=== PATIENT | female | born 1965 | race Caucasian/White ===

== ENCOUNTER 2021-01-28 08:43 | Emergency (ER) | payer OTHER, SELFPAY ==
[2021-01-28 08:44] VITALS: BP 147/88; PULSE 90; RESP 20; TEMP 36.4; BMI 30.9
--- NOTE | 2021-01-28 09:06 | EX.ED.DYSGE1 ---
HPI History of Present Illness Chief Complaint: Allergic Reaction Informant: patient Narrative Narrative: 55-year-old female presents the emergency room with hives and facial swelling. Patient states that 30 years ago she had a summer where she struggled with hives. It went away and couple weeks ago she was prescribed Flagyl and developed hives again. She states that she has been taking Benadryl and that does help. Yesterday at work she began to have facial swelling and lip swelling. She gave herself a shot of epinephrine and things improved but she continued to have facial swelling. She took some additional Benadryl cream to the emergency room this morning after noticing her eyes were swollen. She denies any changes in soaps lotions etc. [facility] Medical History Anxiety Depression Home Medications epinephrine [Epi E-Z Pen] 0.3 mg IM Q10M PRN PRN 01/28/21 [History Last Taken Unknown] epinephrine [EpiPen 2-Jay] 0.3 mg IM Q10M PRN PRN #2 ea 01/28/21 [Rx Last Taken Unknown] venlafaxine 150 mg PO DAILY 01/28/21 [History Last Taken Unknown] Allergy/AdvReac Type Severity Reaction Status Date / Time ibuprofen Allergy Anaphylaxis Verified 01/28/21 08:58 metronidazole Allergy Anaphylaxis Verified 01/28/21 08:58 Surgical History Hx of section Social History (Updated 01/28/21 @ 09:[address] Boyd Geller DO) Smoking Status: Current every day smoker tobacco type: cigarettes substance use type: does not use ROS ROS ED Constitutional Constitutional ED: Denies chills or weight loss Eyes Eyes: Denies change in vision or diplopia ENT ENT ED: Reports other Details: Facial swelling ; Denies ear pain, rhinorrhea or sore throat Cardiovascular Cardiovascular: Denies chest pain, orthopnea, palpitations or racing heartbeat Respiratory/Chest Respiratory/Chest: Denies cough, dyspnea or orthopnea Gastrointestinal Gastrointestinal: Denies abdominal pain, diarrhea, nausea or vomiting Genitourinary Genitourinary ED: Denies dysuria, hematuria or urinary frequency Musculoskeletal Musculoskeletal: Denies arthralgias or myalgias Integumentary Reports other Details: Hives ; Denies abscess or rash Neurologic Neurologic: Denies headache(s) or weakness Psychiatric Psychiatric: Denies anxiety, depression, suicidal ideation or suicidal thoughts Endocrine Endocrinology: Denies polydipsia, polyphagia or polyuria Allergic/Immunologic Allergic/Immunologic ED: Denies mouth swelling, tongue swelling or urticaria EXAM Physical Exam Const Vital Signs: 01/28/21 08:44 Temperature 97.6 F L Temperature Source Temporal Pulse Rate 90 Respiratory Rate 20 H Blood Pressure 147/88 H Blood Pressure Mean 107 Positive well nourished and well developed General Appearance ED: well developed HEENT Reports normocephalic, head/scalp atraumatic, TM's clear and moist mucous membranes HEENT Narrative: There is no tongue swelling. There is mild swelling particularly in the periorbital region bilaterally. Tympanic Membrane ED: Yes TM's clear Eyes PERRL and EOMs intact bilaterally Neck no lymphadenopathy, supple and no JVD Resp normal respiratory effort and clear to auscultation bilaterally Cardio regular rate, regular rhythm and no murmurs GI normal to inspection, nondistended, normoactive bowel sounds and non-tender Palpation: soft Back/Spine no CVA tenderness and normal ROM Extremity normal to inspection General Extremety ED: Negative for edema General Extremity: Negative for edema Neuro oriented x3 and CN's II-XII intact bilaterally Sensorium / Orientation: alert Motor Exam: strength 5/5 throughout Psych mental status grossly normal Mood & Affect: Negative for depressed or tearful Skin no rashes or lesions noted and no wounds MDM MDM MDM Narrative Medical decision making narrative: Patient really does not want steroids as she states that she was on them before which resulted in a significant weight gain but she had been using them for months. She will continue to use Benadryl also add in Pepcid. I will give her a shot of Kenalog. Would recommend follow-up with allergy. Discharge Plan Triage Chief Complaint: Allergic Reaction ED Provider: Boyd Geller Dx/Rx/DC Orders Clinical Impression: Hives, Facial swelling Prescriptions: New epinephrine [EpiPen 2-Jay] 0.3 mg/0.3 mL auto-injector 0.3 mg IM Q10M PRN PRN (Reason: anaphylaxis) Qty: 2 RF: 0 No Action venlafaxine 150 mg Capsule,Extended Release 24hr 150 mg PO DAILY RF: 0 epinephrine [Epi E-Z Pen] 0.3 mg/0.3 mL Auto-Injector 0.3 mg IM Q10M PRN PRN (Reason: Allergic Reaction) RF: 0 Primary Care Provider: Juliano Ellsworth Referrals: Juliano Ellsworth MD [Primary Care Provider] - As Needed Activity Restrictions/Additional Instructions: Benadryl 25 mg every 6 hours as needed. I would also recommend taking Pepcid 20 mg twice a day. I would recommend following up with an field artillery targeting technician. Disposition Disposition: Home, Self Care
[2021-01-28] MEDS: Triamcinolone Acetonide 40 MG/ML Vial 80 MG IM (09:36)
[2021-01-28 10:13] VITALS: PULSE 78; RESP 16; O2SAT 97
== END 2021-01-28 10:14 | disposition home or self-care (01) ==
LOC: ED 09:25
PROVIDERS: Emergency Provider Emergency Medicine; PCP Family Medicine
DX: L50.0 Allergic urticaria (principal); M79.89 Other specified soft tissue disorders; F41.9 Anxiety disorder, unspecified; F32.9 Major depressive disorder, single episode, unspecified; F17.210 Nicotine dependence, cigarettes, uncomplicated; Z79.899 Other long term (current) drug therapy
CPT/HCPCS: 96372; 99282

== ENCOUNTER 2021-06-09 15:25 | Emergency (ER) | payer SELFPAY ==
[2021-06-09 15:26] VITALS: BP 139/84; PULSE 91; RESP 15; TEMP 36.4; O2SAT 97; BMI 32.2
--- NOTE | 2021-06-09 15:54 | EDS_ITS ---
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 She had 1 occur about an hour ago around 3:00 she says she started developing tongue lip swelling throat swelling. And injected herself in the right thigh with her EpiPen. She said within minutes she has significant relief and currently is almost back to baseline. She has had these ever since 22 years old and essentially went away for a while and have recurred in the last 3 months. She sees an occupational health and safety adviser who prescribes her her EpiPen's and they called her in a refill today. She denies any recent illness. Prior similar symptoms: Yes PFSH PFSH Medical History Anxiety Depression Home Medications epinephrine [Epi E-Z Pen] 0.3 mg IM Q10M PRN PRN 01/28/21 [History Last Taken Unknown] epinephrine [EpiPen 2-Jay] 0.3 mg IM Q10M PRN PRN #2 ea 01/28/21 [Rx Last Taken Unknown] venlafaxine 150 mg PO DAILY 01/28/21 [History Last Taken Unknown] Allergy/AdvReac Type Severity Reaction Status Date / Time ibuprofen Allergy Anaphylaxis Verified 06/09/21 15:26 metronidazole Allergy Anaphylaxis Verified 06/09/21 15:26 Surgical History Hx of section Social History Smoking Status: Current every day smoker tobacco type: cigarettes substance use type: does not use ROS ROS ED ROS Narrative Today wheezing, mild lip and tongue swelling. Hoarse voice. Gets hives almost daily. Review of Systems ROS Unobtainable: Denies due to encephalopathy Constitutional Constitutional ED: Denies chills, fever(s) or subjective Eyes Eyes: Denies change in vision ENT ENT ED: Denies ear pain or rhinorrhea Cardiovascular Cardiovascular: Denies chest pain or palpitations Respiratory/Chest Respiratory/Chest: Denies cough or dyspnea Gastrointestinal Gastrointestinal: Denies abdominal pain, diarrhea, nausea or vomiting Genitourinary Genitourinary ED: Denies dysuria Musculoskeletal Musculoskeletal: Denies myalgias Integumentary Reports rash Neurologic Neurologic: Denies headache(s) Psychiatric Psychiatric: Denies depression Endocrine Endocrinology: Denies polyuria Allergic/Immunologic Allergic/Immunologic ED: Denies urticaria EXAM Physical Exam Narrative Exam Narrative: 55-year-old female no acute distress vital signs stable afebrile. Pulse ox 97% on room air no hypoxia. Blood pressure 139/84. Patient in no distress. HEENT exam normal. Posterior pharynx normal. No swelling of t he lips or tongue. No trouble swallowing or breathing. Minimally hoarse voice. No drooling. Neck nontender no lymphadenopathy. Lungs clear to auscultation no wheezing. Heart regular rhythm rate about 90. Abdomen soft nontender. Moving all 4 extremities. 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 No edema. Neurologically awake and alert no focal motor deficits. Const Vital Signs: 06/09/21 15:26 Temperature 97.5 F L Temperature Source Temporal Pulse Rate 91 Respiratory Rate 15 Blood Pressure 139/84 H Blood Pressure Mean 102 Pulse Ox 97 Oxygen Delivery Method Room Air Positive well nourished and well developed; Negative for cachectic, contractures or unkempt General Appearance ED: well developed and NAD; Negative for unkempt, cachectic, contractures, cyanotic, diaphoretic or pallor Nutritional Appearance: Negative for cachectic HEENT Reports moist mucous membranes Negative for trauma or tenderness Eyes PERRL and EOMs intact bilaterally Neck no lymphadenopathy, supple and no JVD General: Negative for tenderness Chest Wall inspection of chest normal Resp normal respiratory effort and clear to auscultation bilaterally Effort and Inspection: Negative for pain with movement Auscultation: Negative for rales, rhonchi or wheezes GI normal to inspection, nondistended, normoactive bowel sounds, non-tender, non- distended and no masses Inspection: Negative for abdominal distention Auscultation: normoactive bowel sounds; Negative for hyperactive bowel sounds Palpation: soft; Negative for tender, guarding or rebound tenderness present Back/Spine no CVA tenderness General Back: Negative for CVA tenderness Cervical Spine: Negative for cervical spine tenderness Thoracic Spine / Upper Back: Negative for thoracic spinal tenderness or paraspinal muscle tenderness Lumbar Spine / Lower Back: Negative for lumbar spinal tenderness Extremity normal to inspection General Extremety ED: Negative for edema or tenderness General Extremity: Negative for edema Neuro oriented x3, CN's II-XII intact bilaterally and no sensory deficits noted Sensorium / Orientation: alert; Negative for orientation impaired, lethargic or stuporous Motor Exam: strength 5/5 throughout Psych mental status grossly normal Appearance: Negative for unkempt Attitude: No agitated Mood & Affect: Negative for depressed, anxious or tearful Skin no rashes or lesions noted, no wounds and skin turgor normal General Skin Exam: Negative for jaundice or pallor MDM MDM MDM Narrative Medical decision making narrative: 55-year-old female history of recurrent idiopathic allergic reactions. Used her EpiPen about an hour ago. He is feeling much improved. Has no swelling of her lips or tongue currently. No trouble breathing. She will be observed and if doing well she will be discharged home. Her occupational health and safety adviser is already called her in a refill for her EpiPen. She and I discussed oral steroids which she states she does not want to do because in the past she put on significant weight with those. Discharge Plan Triage Chief Complaint: Allergic Reaction ED Provider: Terrell Aguirre Dx/Rx/DC Orders Clinical Impression: Allergic reaction Instructions: ED General Allergic Reactions Prescriptions: No Action venlafaxine 150 mg Capsule,Extended Release 24hr 150 mg PO DAILY RF: 0 epinephrine [Epi E-Z Pen] 0.3 mg/0.3 mL Auto-Injector 0.3 mg IM Q10M PRN PRN (Reason: Allergic Reaction) RF: 0 epinephrine [EpiPen 2-Jay] 0.3 mg/0.3 mL auto-injector 0.3 mg IM Q10M PRN PRN (Reason: anaphylaxis) Qty: 2 RF: 0 Primary Care Provider: Juliano Ellsworth Referrals: Juliano Ellsworth MD [Primary Care Provider] - As Needed Activity Restrictions/Additional Instructions: Make sure to get your EpiPen refill as soon as possible. Return if feeling worse. Follow-up with your doctors as needed. Disposition Disposition: Home, Self Care
[2021-06-09 16:39] VITALS: PULSE 92; RESP 18; O2SAT 99
== END 2021-06-09 16:39 | disposition home or self-care (01) ==
LOC: ED 16:04
PROVIDERS: Emergency Provider Emergency Medicine; PCP Family Medicine; Visit Provider Emergency Medicine
DX: T78.40XA Allergy, unspecified, initial encounter (principal); F17.210 Nicotine dependence, cigarettes, uncomplicated; F32.A Depression, unspecified; F41.9 Anxiety disorder, unspecified; Z79.899 Other long term (current) drug therapy; X58.XXXA Exposure to other specified factors, initial encounter
CPT/HCPCS: 99282